=== PATIENT | female | born 1970 | race Caucasian/White ===

== ENCOUNTER → 2017-07-30 | Day surgery (SDC) | payer BC ==
[~2017-07-30] MED LIST: Lactated Ringers 1,000 ML IV SCH; Propofol 200 MG/20 ML SDV IV ONE
[2017-07-30 09:19] VITALS: BP 135/78
--- NOTE | 2017-08-02 08:34 | OR ---
DATE OF OPERATION: 07/30/2017 PREOPERATIVE DIAGNOSIS: DYSPHAGIA. POSTOPERATIVE DIAGNOSIS: DYSPHAGIA. SURGEON: Reinier Buchanan MD PROCEDURE: ESOPHAGOGASTRODUODENOSCOPY WITH AL. 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 COMPLICATIONS: None. SPECIMEN: AL. FINDINGS: 1. Full-length EGD. 2. Status post Marybel-en-Y gastric bypass. 3. Postoperative tonsillectomy with residual scarring. RECOMMENDATIONS: We would recommend ENT consult for postop recheck. INDICATIONS: The patient is status post tonsillectomy in March. Since that time, she has been having some trouble where she feels like it is hard to swallow in the back of her throat. Christina sent her for EGD. DESCRIPTION OF PROCEDURE: The patient was prepped and draped, placed in the left lateral decubitus position. A lubricated Olympus gastroscope was inserted over a bit and advanced to cricopharyngeus area and easily intubated in the esophagus. Esophageal lining was benign in its entire course. The Z-line was crisp and sharp at 37-38 cm. At 37-38 cm, there was no esophagitis, stricturing ulceration, or Laurent changes. No spontaneous reflux seen. The scope was advanced into the stomach, which is very small in size. The Marybel-en-Y bypass is seen and no abnormalities, peptic ulcer disease, polyps, masses, otherwise were visualized. CLOtest was obtained. Scope was brought back into the distal esophagus. A thorough evaluation of the esophagus and the cricopharyngeal area showed no obvious lesions. There is still little bit up of prominent tonsillar tissue and some postop changes as expected, but no other gross abnormalities were seen. Air was suctioned and scope removed without complication. FORD/FELISHA /[id number]
== END ==
LOC: CC.SDS 07:29
PROVIDERS: ATTEND Family Medicine
DX: R13.10 Dysphagia, unspecified (principal); F41.9 Anxiety disorder, unspecified; E55.9 Vitamin D deficiency, unspecified; D51.9 Vitamin B12 deficiency anemia, unspecified; Z98.84 Bariatric surgery status; Z88.8 Allergy status to other drugs, medicaments and biological substances; Z90.710 Acquired absence of both cervix and uterus; Z98.51 Tubal ligation status; Z98.890 Other specified postprocedural states; Z87.891 Personal history of nicotine dependence
CPT/HCPCS: 43239; 87081; J2704; J7120

== ENCOUNTER 2021-08-11 19:09 | Emergency (ER) | payer BC ==
[2021-08-11 19:29] VITALS: PULSE 63
[2021-08-11 19:34] VITALS: BP 143/88
[2021-08-11] MEDS ORDERED: Take Home: Acetaminophen/HYDROcodone 325-5 MG, 2 Tab Pack PO ONE (20:10)
--- NOTE | 2021-08-11 20:16 | EDM.PDOC ---
ED HPI GENERAL MEDICAL PROBLEM - General Chief Complaint: Upper Extremity Injury/Pain Stated Complaint: "I think I broke my finger" Time Seen by Provider: 08/11/21 19:10 Source of Information: Reports: Patient History Limitations: Reports: No Limitations - History of Present Illness INITIAL COMMENTS - FREE TEXT/NARRATIVE: Sonia is a 50 yo female who presents to the ED with complaints of left hand pain. She states she was walking in the dark and tripped on the sidewalk. ADmits she put her hand down to catch her self and feels that she broke her pinky finger. States she is able to move the finger but it did swell up. Has discomfort with movement of the finger. 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 ED EXAM, GENERAL - Physical Exam Exam: See Below Exam Limited By: No Limitations General Appearance: Alert, WD/WN, No Apparent Distress Extremities: Joint Swelling, Limited Range of Motion (swelling noted to the distal 5th metacarpal.). No: Increased Warmth, Pallor, Redness Neurological: Alert, Oriented, Normal Cognition, No Motor/Sensory Deficits Skin Exam: Wound/Incision (small abrasion to the lateral aspect of distal metacarpal of the left hand. Small abrasion to left knee. ) ED TRAUMA EXTREMITY PROCEDURES - Splinting Left Upper Extremity Splint Site: left hand Pre-Procedure NV Status: Normal Post-Procedure NV Status: Normal Splint Material: Fiberglass Splint Design: Gutter (ulnar) Applied & Form Fitted By: Provider Provider Post-Splint Application NV Check: NV Status Normal, Good Position Complications: No Course - Vital Signs Last Recorded V/S: Last Vital Signs Temp 98.4 F 08/11/21 19:10 Pulse 63 08/11/21 19:10 Resp 16 08/11/21 19:10 BP 143/88 H 08/11/21 19:20 Pulse Ox 99 08/11/21 19:10 - Orders/Labs/Meds Orders: Active Orders 24 hr Category Date Time Status Hand Comp Min 3V Lt [CR] Stat Exams 08/11/21 19:10 Ordered Departure - Departure Time of Disposition: 20:12 Disposition: Home, Self-Care 01 Condition: Good Clinical Impression: Closed fracture of head of metacarpal bone - Discharge Information Instructions: Metacarpal Fracture, [id number] Referrals: PCP,None [Primary Care Provider] - Additional Instructions: 1) [place] 5/325 - 1 tablet every 6 hours as needed for pain 2) Meloxicam 7.5mg - take as directed on prescription bottle 3) Keep splint dry as discussed. 4) Follow up with physical therapy for splinting, will call with appointment 5) If any complications or concerns, please let us know sooner. Sepsis Event Note (ED) - Evaluation Sepsis Screening Result: No Definite Risk - Focused Exam Vital Signs: Vital Signs Temp Pulse Resp BP Pulse Ox 08/11/21 19:20 143/88 H 08/11/21 19:10 98.4 F 63 16 167/95 H 99 - Problem List & Annotations (1) Closed fracture of head of metacarpal bone SNOMED Code(s): 164759309 Code(s): S62.309A - UNSP FRACTURE OF UNSP METACARPAL BONE, INIT FOR CLOS FX Status: Acute Current Visit: Yes - Problem List Review Problem List Initiated/Reviewed/Updated: Yes - My Orders Last 24 Hours: My Active Orders 08/11/21 19:10 Hand Comp Min 3V Lt [CR] Stat - Assessment/Plan Last 24 Hours: My Active Orders 08/11/21 19:10 Hand Comp Min 3V Lt [CR] Stat Plan: X-ray of the hand did show an avulsion type fracture at the head of the 5th metacarpal. No displacement noted. Ulnar gutter One step splint applied. See additional instructions.
== END 2021-08-11 20:25 | disposition home or self-care (01) ==
LOC: CC.ED 19:09
DX: S62.337A Displaced fracture of neck of fifth metacarpal bone, left hand, initial encounter for closed fracture (principal); S80.212A Abrasion, left knee, initial encounter; Z88.8 Allergy status to other drugs, medicaments and biological substances; Z91.048 Other nonmedicinal substance allergy status; W01.0XXA Fall on same level from slipping, tripping and stumbling without subsequent striking against object, initial encounter; Y93.01 Activity, walking, marching and hiking; Y92.480 Sidewalk as the place of occurrence of the external cause
CPT/HCPCS: 29125; 73130-LT; 99283-25; A9270-GY